=== PATIENT | male | born 1995 | race African-American/Black ===

== ENCOUNTER 2020-04-16 13:52 | Emergency (ER) | payer SELFPAY ==
[~2020-04-16] VITALS: Ht 175.3 cm; Wt 63.6 kg
[2020-04-16 14:36] VITALS: BP 134/70
[2020-04-16] MEDS ORDERED: ALBUTEROL SULFATE 2.5 MG/3 ML NEBU. NEB ONE (15:00)
[2020-04-16] MEDS ORDERED: predniSONE 10 MG TABLET PO ONE (15:00)
[2020-04-16] MEDS ORDERED: ALBU2.5V8 IH (16:13)
[2020-04-16] MEDS ORDERED: PRED20TA PO (16:13)
--- NOTE | 2020-04-16 16:14 | PHYS DOC ---
Past Medical History Past Medical History: Asthma Past Surgical History: No Surgical History Smoking Status: Current Every Day Smoker Alcohol Use: None General Adult EDM: Chief Complaint: ASTHMA HPI: HPI: Patient is a 24 year old AA male who presents to the emergency department with complaints of wheezing and shortness of breath that began last night. Patient reports a history of asthma, he states he has not had problems with his asthma for very long time and he does not have an inhaler at home. Patient states that he works at [employer] he denies any known exposure to COVID-19. Patient denies any fever, body aches, headache, numbness, tingling, weakness, chest pain, palpitations, nausea, vomiting, diarrhea, abdominal pain, ear pain, or sore throat. Patient states that he developed the cough and wheezing last night. He denies any new environmental exposures, foods, or medications. Patient denies production of any mucus with cough. He currently rates his discomfort a 5 out of 10 on the pain scale, he describes the pain as chest tightness and pain with coughing. He denies any alleviating factors. Review of Systems: Review of Systems: Constitutional: Denies fever or chills. [] Eyes: Denies change in visual acuity. [] HENT: Denies nasal congestion or sore throat. [] Respiratory: See HPI Cardiovascular: Denies palpitations or edema. [] GI: Denies abdominal pain, nausea, vomiting, or diarrhea. [] : Denies dysuria. [] Musculoskeletal: Denies back pain or joint pain. [] Integument: Denies rash. [] Neurologic: Denies headache, focal weakness or sensory changes. [] Psychiatric: Denies depression or anxiety. [] Heart Score: Risk Factors: Risk Factors: DM, Current or recent (<one month) smoker, HTN, HLP, family history of CAD, obesity. Risk Scores: Score 0 - 3: 2.5% MACE over next 6 weeks - Discharge Home Score 4 - 6: 20.3% MACE over next 6 weeks - Admit for Clinical Observation Score 7 - 10: 72.7% MACE over next 6 weeks - Early Invasive Strategies Current Medications: Current Medications Medications (Trade) Dose Ordered Sig/[place] Start Time Stop Time Status Last Admin Dose Admin Albuterol Sulfate (Ventolin Neb Soln) 2.5 mg 1X ONCE 04/16/20 15:00 04/16/20 15:01 DC 04/16/20 14:59 2.5 MG Prednisone (Prednisone) 50 mg 1X ONCE 04/16/20 15:00 04/16/20 15:01 DC 04/16/20 15:38 50 MG Allergies: Allergies: Allergies Coded Allergies Type Severity Reaction Last Updated Verified No Known Drug Allergies 04/16/20 No Physical Exam: PE: Constitutional: Well developed, well nourished, no acute distress, non-toxic appearance. [] HENT: Normocephalic, atraumatic, bilateral external ears normal, oropharynx moist, no oral exudates, nose normal. [] Eyes: PERRLA, EOMI, conjunctiva normal, no discharge. [] Neck: Normal range of motion, no tenderness, supple, no stridor. [] Cardiovascular:Heart rate regular rhythm, no murmur [] Lungs & Thorax: Bilateral breath sounds expiratory wheezes throughout all mistry with increased work of breathing, and mild intercostal retractions, regular rate Skin: Warm, dry, no erythema, no rash. [] Back: No tenderness Extremities: No cyanosis, no clubbing, ROM intact, no edema. [] Neurologic: Alert and oriented X 3, no focal deficits noted. [] Psychologic: Affect normal, judgement normal, mood normal. [] Current Patient Data: Vital Signs: Vital Signs Date Time Temp Pulse Resp B/P (MAP) Pulse Ox O2 Delivery O2 Flow Rate FiO2 04/16/20 15:00 94 Room Air 04/16/20 14:36 98.9 98 18 134/70 (91) 98.9 EKG: EKG: [] Radiology/Procedures: Radiology/Procedures: [] Course & Med Decision Making: Course & Med Decision Making Pertinent Labs and Imaging studies reviewed. (See chart for details) Patient is a 24-year-old male who presents emergency department with complaints of an acute asthma exacerbation. He was given a breathing treatment in the emergency department and 50 mg of prednisone. Following the breathing treatment patient's lung sounds were clear throughout all mistry, there were no more retractions, and the patient reported feeling better. A prescription was written for prednisone and an albuterol inhaler. Patient was encouraged to avoid airway irritants and dairy products as they will worsen his symptoms. Encouraged patient to follow-up with his primary care doctor next week. Return to the ER if symptoms worsen. Patient verbalized an understanding of home care, medications, follow-up, and return to ED instructions and was in agreement with the plan of care. COVID-19 CRITERIA: The patient was evaluated during the global COVID-19 pandemic, and that diagnosis was suspected/considered upon their initial presentation. Their evaluation, treatment and testing was consistent with current guidelines for patients who present with complaints or symptoms that may be related to COVID-19. [] Abad Disclaimer: Abad Disclaimer: This electronic medical record was generated, in whole or in part, using a voice recognition dictation system. Departure Departure Impression: Primary Impression: Acute asthma exacerbation Qualified Codes: J45.21 - Mild intermittent asthma with (acute) exacerbation Disposition: HOME, SELF-CARE Condition: STABLE Referrals: NO PCP (PCP) Patient Instructions: Asthma Prevention-Brief, Asthma, Adult, [id number] Additional Instructions: Fill prescription(s) and use as directed. Increase clear fluids. Avoid airway triggers such as smoke, fragrance, dust, and pollen. Follow-up with your primary care doctor this week, return to the ER if symptoms worsen. Scripts Albuterol Sulfate (Proair Hfa) 8.5 Gm Hfa.aer.ad 2 PUFF IH PRN Q4-6HRS PRN for wheezing for 21 Days, #1 INHALER 0 Refills Prov: JANES POWER APRN 04/16/20 Prednisone (PREDNISONE) 20 Mg Tablet 2 TAB PO DAILY for 5 Days, #10 TAB 0 Refills begin taking on 04/17/20 Prov: JANES POWER APRN 04/16/20 Justicifation of Admission Dx: Justifications for Admission: Justification of Admission Dx: N/A JANES POWER APRN Apr 16, 2020 16:14
== END 2020-04-16 16:21 | disposition home or self-care (01) ==
LOC: ER 13:52
DX: J45.21 Mild intermittent asthma with (acute) exacerbation (principal); R06.02 Shortness of breath; R05 Cough; J45.909 Unspecified asthma, uncomplicated; F17.200 Nicotine dependence, unspecified, uncomplicated
CPT/HCPCS: 94640; 99283; J7512; J7613